=== PATIENT | male | born 1950 | race Caucasian/White ===

== ENCOUNTER 2017-01-24 22:14 | Observation (INO) | payer OTHER ==
--- NOTE | 2017-01-24 22:49 | ED PDOC ---
Arrival/HPI - General Chief Complaint: Chest Pain Time Seen by Provider: 01/24/17 22:37 Historian: Patient - History of Present Illness Narrative History of Present Illness (Text): 01/24/17 22:46 66 year old male whose past medical history includes hypertension (on norvasc) presents to the Emergency department complaining of intermittent chest pain that began early this morning. Tonight patient also had associated pain to left jaw which was transient. Patient's family decided to bring him into the Emergency department for further evaluation. Patient currently asymptomatic. He denies any history of shortness of breath, cough, fever, chills. Denies prior history of exertional chest pain or dyspnea on exertion. Symptom Onset: Gradual Symptom Course: Unchanged Activities at Onset: Rest Associated Symptoms (Text): 01/24/17 22:49 left jaw pain Past Medical History - Provider Review Nursing Documentation Reviewed: Yes - Cardiac Hx Hypertension: Yes - Psychiatric Hx Substance Use: No - Surgical History Hx Orthopedic Surgery: Yes Family/Social History - Physician Review Nursing Documentation Reviewed: Yes Family/Social History: Unknown Family HX Smoking Status: Never Smoked Hx Alcohol Use: No Hx Substance Use: No Allergies/Home Meds Allergies/Adverse Reactions: Allergies Penicillins Allergy (Verified 01/24/17 22:26) SWELLING Home Medications: Home Meds Medication Instructions Recorded Confirmed Atorvastatin [Lipitor] 01/24/17 01/24/17 amLODIPine [Norvasc] 01/24/17 Review of Systems - Physician Review All systems were reviewed & negative as marked: Yes - Review of Systems Constitutional: absent: Fevers, Other (no chills) Respiratory: absent: SOB, Cough Cardiovascular: Chest Pain (intermittent). absent: CARTWRIGHT, Other (no exertional chest pain) Musculoskeletal: Other (+transient left jaw pain) Physical Exam Vital Signs Reviewed: Yes Vital Signs Temp Pulse Resp BP Pulse Ox 01/25/17 00:05 99 H 18 167/80 H 97 01/24/17 22:28 97.9 F 92 H 16 170/85 H 98 Temperature: Afebrile Blood Pressure: Normal Pulse: Regular Respiratory Rate: Normal Appearance: Positive for: Well-Appearing, Non-Toxic, Comfortable Pain Distress: None Mental Status: Positive for: Alert and Oriented X 3 - Systems Exam Head: Present: Atraumatic, Normocephalic Pupils: Present: PERRL Extroacular Muscles: Present: EOMI Conjunctiva: Present: Normal Mouth: Present: Moist Mucous Membranes Neck: Present: Normal Range of Motion Respiratory/Chest: Present: Clear to Auscultation, Good Air Exchange. No: Respiratory Distress, Accessory Muscle Use, Wheezes, Rales, Rhonchi Cardiovascular: Present: Regular Rate and Rhythm, Normal S1, S2. No: Murmurs, Rub, Gallop Abdomen: Present: Normal Bowel Sounds. No: Tenderness, Distention, Peritoneal Signs, Rebound, Guarding Back: Present: Normal Inspection Upper Extremity: Present: Normal Inspection. No: Cyanosis, Edema Lower Extremity: Present: Normal Inspection. No: Edema Neurological: Present: GCS=15, CN II-XII Intact, Speech Normal Skin: Present: Warm, Dry, Normal Color. No: Rashes Psychiatric: Present: Alert, Oriented x 3, Normal Insight, Normal Concentration Medical Decision Making ED Course and Treatment: 01/24/17 22:53 Impression: 66 year old male complaining of intermittent chest pain. Physical exam unremarkable. Plan: --EKG --Chest X-ray --Labs --aspirin -- Reassess and disposition Prior Visits: Notes and results from previous visits were reviewed. Progress Notes: 01/24/17 23:01 EKG: Ordered, reviewed, and independently interpreted the EKG. Rate : 87 BPM Rhythm : NSR Interpretation : prolonged QT, nonspecific ST/T changes 01/25/17 01:45 Chest X-ray Impression: negative, read by me. 01/25/17 01:50 Case discussed with house resident Dr. Loja and Dr. Olvera who accepts patient to his service. - Lab Interpretations Lab Results: 01/24/17 22:50 01/24/17 22:50 Lab Results 01/24/17 22:50: WBC 7.5, RBC 4.78, Hgb 13.9 L, Hct 39.6 L, MCV 82.8, MCH 29.1, MCHC 35.1, RDW 12.8, Plt Count 254, MPV 8.2, PT 10.6, INR 0.98, APTT 26.8, Sodium 141, Potassium 3.2 L, Chloride 102, Carbon Dioxide 29, Anion Gap 13, BUN 18, Creatinine 0.9, Est GFR ( Amer) > 60, Est GFR (Non-Af Amer) > 60, Random Glucose 101, Calcium 9.2, Total Bilirubin 0.8, AST 43, ALT 32, Alkaline Phosphatase 92, Lactate Dehydrogenase 517, Total Creatine Kinase 385 H, CK-MB ( CK-2) 6.8 H, CK-MB (CK-2) % 1.8 L, Troponin I < 0.01, Total Protein 7.4, Albumin 4.2, Globulin 3.2, Albumin/Globulin Ratio 1.3 I have reviewed the lab results: Yes - RAD Interpretation Radiology Orders: 01/24/17 22:42 CHEST PORTABLE [RAD] Stat - Medication Orders Current Medication Orders: Amlodipine Besylate (Norvasc) 5 mg PO DAILY ERIC Aspirin (Ecotrin) 81 mg PO DAILY ERIC Atorvastatin Calcium (Lipitor) 10 mg PO DAILY ERIC Labetalol HCl (Trandate) 100 mg PO TID PRN PRN Reason: Systolic Blood Pressure Last Admin: 01/25/17 03:30 Dose: 100 MG TANISHA Pulse and Blood Pressure Document 01/25/17 03:30 PORTER (Rec: 01/25/17 03:31 PORTER [id number]) Pulse Pulse Rate (60-90) 82 Blood Pressure Blood Pressure (100/60-150/90) 166/89 Discontinued Medications Aspirin (Aspirin) 325 mg PO ONCE STA Stop: 01/24/17 22:43 Last Admin: 01/24/17 22:46 Dose: 325 MG Potassium Chloride (K-Dur 20 Meq Er Tab) 40 meq PO STAT STA Stop: 01/25/17 01:45 Last Admin: 01/25/17 01:59 Dose: 40 MEQ - Scribe Statement The provider has reviewed the documentation as recorded by the Pita Nichols Provider Scribe Attestation: All medical record entries made by the Scribyisel were at my direction and personally dictated by me. I have reviewed the chart and agree that the record accurately reflects my personal performance of the history, physical exam, medical decision making, and the department course for this patient. I have also personally directed, reviewed, and agree with the discharge instructions and disposition. Disposition/Present on Arrival - Present on Arrival Any Indicators Present on Arrival: No History of DVT/PE: No History of Uncontrolled Diabetes: No Urinary Catheter: No History of Decub. Ulcer: No History Surgical Site Infection Following: None - Disposition Have Diagnosis and Disposition been Completed?: Yes Diagnosis: Chest pain Disposition: HOSPITALIZED Disposition Time: 01:53 Patient Problems: Current Active Problems Problem Status Diagnosed Chest pain Acute Condition: STABLE
[2017-01-24 23:05] LABS: HEMATOCRIT 39.6 % (42.0-52.0); MEAN CELL VOLUME 82.8 fL (80.0-105.0); MEAN CORPUSCULAR HEMOGLOBIN 29.1 pg (25.0-35.0); MEAN CORPUSCULAR HGB CONC 35.1 g/dl (31.0-37.0); MEAN PLATELET VOLUME 8.2 fl (7.0-11.0); RED CELL DISTRIBUTION WIDTH 12.8 % (11.5-14.5); WHITE BLOOD COUNT 7.5 10^3/ul (4.5-11.0)
[2017-01-24 23:16] LABS: INR 0.98 (0.93-1.08); PARTIAL THROMBOPLASTIN TIME 26.8 Seconds (23.7-30.8)
[2017-01-24 23:17] LABS: ALB/GLOB RATIO 1.3 (1.1-1.8); ALKALINE PHOSPHATASE 92 U/L (38-133); ALT/SGPT 32 U/L (7-56); AST/SGOT 43 U/L (15-59); BILIRUBIN,TOTAL 0.8 mg/dL (0.2-1.3); BLOOD UREA NITROGEN 18 mg/dL (7-21); CALCIUM 9.2 mg/dL (8.4-10.5); CARBON DIOXIDE 29 mmol/L (21-33); CHLORIDE 102 mmol/L (98-107); GFR AFRICAN-AMERICAN > 60; GLUCOSE,RANDOM 101 mg/dL (70-110); POTASSIUM 3.2 mmol/L (3.6-5.0); SODIUM 141 mmol/L (132-148); TOTAL PROTEIN 7.4 g/dL (5.8-8.3)
[2017-01-24 23:27] LABS: TROPONIN I < 0.01 ng/mL
[2017-01-25 00:05] VITALS: O2SAT 97
[2017-01-25] MEDS ORDERED: Potassium Chloride 20 mEq ER Tab PO STA (01:44)
--- NOTE | 2017-01-25 02:53 | CP.PCM.HP ---
<Diogenes Castorena - Last Filed: 01/25/17 02:45> History of Present Illness - History of Present Illness History of Present Illness: cc: Chest pain HPI: Patient is a 66yo male with past medical history of hypertension and hyperlipidemia that presented to the ED c/o chest pain radiating to his jaw that started in the morning and had since subsided. Patient reported that in the morning he began experiencing intermittent sub-sternal chest pain, 4/10 in severity that radiated to the left side of his jaw. He stated that he had never experienced anything like this before in the past. He reported that although he did not have any pain while in the ED, he was urged by his family to come in for evaluation. In the ED, patient's vitals were as follows: temperature 97.9F , blood pressure 170/85, heart rate 92bpm, o2 saturation 98% on room air. His EKG revealed no acute ST-T wave changes and his first troponin was negative. Patient denied any chest pain, palpitations or SOB while in the ED. He also denied abdominal pain, nausea, vomiting, fever, chills, cough, focal weakness, numbness, tingling. 12 point ROS as per above, otherwise negative PMHx: Hypertension, Hyperlipidemia PSHx: Left knee surgery (~2yrs ago), Right knee surgery (>10yrs ago) Allergies: Penicillin Medications: Norvasc 5mg PO qD, Lipitor 10mg PO qD Social Hx: Former smoker, quit over 20 yrs ago; Social alcohol use; Denies illicit drugs Present on Admission - Present on Admission Any Indicators Present on Admission: No Review of Systems - Review of Systems Review of Systems: 12 point ROS as per HPI otherwise negative Past Patient History - Past Social History Smoking Status: Never Smoked - CARDIAC Hx Hypertension: Yes - PSYCHIATRIC Hx Substance Use: No - SURGICAL HISTORY Hx Orthopedic Surgery: Yes Meds Allergies/Adverse Reactions: Allergies Allergy/AdvReac Type Severity Reaction Status Date / Time Penicillins Allergy SWELLING Verified 01/24/17 22:26 Physical Exam - Constitutional Appears: Non-toxic, No Acute Distress - Head Exam Head Exam: ATRAUMATIC, NORMAL INSPECTION, NORMOCEPHALIC - Eye Exam Eye Exam: EOMI, PERRL - ENT Exam ENT Exam: Mucous Membranes Moist - Neck Exam Neck exam: Positive for: Normal Inspection. Negative for: Lymphadenopathy, Tenderness, Thyromegaly - Respiratory Exam Respiratory Exam: Clear to Auscultation Bilateral. absent: Rales, Rhonchi, Wheezes - Cardiovascular Exam Cardiovascular Exam: RRR, +S1, +S2. absent: Tachycardia, Diastolic murmur, Gallop, JVD, Rubs, Systolic Murmur - GI/Abdominal Exam GI & Abdominal Exam: Normal Bowel Sounds, Soft. absent: Distended, Firm, Guarding, Rebound, Rigid, Tenderness - Neurological Exam Neurological exam: Alert, CN II-XII Intact, Oriented x3 - Psychiatric Exam Psychiatric exam: Normal Affect, Normal Mood - Skin Skin Exam: Dry, Intact, Normal Color, Warm Results - Vital Signs Recent Vital Signs: Last Vital Signs Temp 97.9 F 01/24/17 22:28 Pulse 99 H 01/25/17 00:05 Resp 18 01/25/17 00:05 BP 167/80 H 01/25/17 00:05 Pulse Ox 97 01/25/17 00:05 - Labs Result Diagrams: 01/24/17 22:50 01/24/17 22:50 Assessment & Plan - Assessment and Plan (Free Text) Assessment: 66yo male with history of HTN and HLD presents c/o intermittent chest pain radiating to the left side of his jaw Plan: 1. Chest pain r/o ACS -EKG reviewed; No acute ST-T wave changes -Chest Xray reviewed -Troponin negative x1, will continue to trend -TSH, Lipid panel, HgbA1c pending -Continue ASA 81mg qD -Cardiology consulted - Dr. Sanchez 2. Hypertension -Continue with labetalol 100mg PO TID PRN for SBP > 160 -Resumed home medication norvasc 5mg PO qD 3. Hyperlipidemia -Resumed home medication lipitor 10mg PO qD Patient seen and case discussed with attending, Dr. Olvera - Date & Time Date: 01/25/17 Time: 02:56 <May VAUGHN,Buck - Last Filed: 01/25/17 07:04> Results - Vital Signs Recent Vital Signs: Last Vital Signs Temp 97.9 F 01/25/17 06:00 Pulse 76 01/25/17 06:00 Resp 22 01/25/17 06:00 BP 148/82 01/25/17 06:00 Pulse Ox 97 01/25/17 06:00 - Labs Result Diagrams: 01/24/17 22:50 01/24/17 22:50 Attending/Attestation - Attestation I have personally seen and examined this patient.: Yes I have fully participated in the care of the patient.: Yes I have reviewed all pertinent clinical information: Yes Notes (Text): 01/25/17 07:03 -I agree with the above H&P completed by the resident physician. -Briefly, the patient is a 66 year old man with a history of HTN and HLD, admitted for chest pain (r/o ACS). Cards consuls, serial trop's EKG's, ASA have all been ordered.
[2017-01-25 08:29] LABS: ADD MANUAL DIFF? NO
[2017-01-25 08:46] LABS: ALB/GLOB RATIO 1.3 (1.1-1.8); ALKALINE PHOSPHATASE 95 U/L (38-133); ALT/SGPT 31 U/L (7-56); AST/SGOT 32 U/L (15-59); BILIRUBIN,TOTAL 0.5 mg/dL (0.2-1.3); BLOOD UREA NITROGEN 17 mg/dL (7-21); CALCIUM 8.7 mg/dL (8.4-10.5); CARBON DIOXIDE 28 mmol/L (21-33); CHLORIDE 103 mmol/L (98-107); CHOLESTEROL 132 mg/dL (130-200); GFR AFRICAN-AMERICAN > 60; GLUCOSE,RANDOM 107 mg/dL (70-110); MAGNESIUM 1.7 mg/dL (1.7-2.2); POTASSIUM 3.6 mmol/L (3.6-5.0); SODIUM 139 mmol/L (132-148); TOTAL PROTEIN 6.8 g/dL (5.8-8.3)
[2017-01-25 08:47] LABS: BASO # 0.02 K/mm3 (0.0-2.0); BASO % 0.3 % (0.0-3.0); EOS # 0.1 (0.0-0.7); EOS % 1.2 % (1.5-5.0); GRAN # 3.52 (1.4-6.5); HEMATOCRIT 39.5 % (42.0-52.0); LYMPH # 2.4 (1.2-3.4); LYMPH % 36.1 % (22.0-35.0); MEAN CELL VOLUME 83.3 fL (80.0-105.0); MEAN CORPUSCULAR HEMOGLOBIN 28.7 pg (25.0-35.0); MEAN CORPUSCULAR HGB CONC 34.4 g/dl (31.0-37.0); MEAN PLATELET VOLUME 8.3 fl (7.0-11.0); MONO # 0.6 (0.1-0.6); MONO % 8.4 % (1.0-6.0); PLATELET COUNT 244 10^3/uL (120.0-450.0); RED CELL DISTRIBUTION WIDTH 12.8 % (11.5-14.5); WHITE BLOOD COUNT 6.5 10^3/ul (4.5-11.0)
[2017-01-25 08:57] LABS: TROPONIN I < 0.01 ng/mL
[2017-01-25 12:26] VITALS: RESP 18
--- NOTE | 2017-01-25 12:50 | CARD ---
APPROVED REPORT EKG Measurement Heart [id number] <Conclusion> Normal sinus rhythm
--- NOTE | 2017-01-25 13:16 | RAD ---
HISTORY: chest pain COMPARISON: No prior. FINDINGS: LUNGS: No active pulmonary disease. PLEURA: No significant pleural effusion identified, no pneumothorax apparent. CARDIOVASCULAR: Normal. OSSEOUS STRUCTURES: No significant abnormalities. VISUALIZED UPPER ABDOMEN: Normal. OTHER FINDINGS: None. IMPRESSION: No active disease.
--- NOTE | 2017-01-25 13:21 | CARD ---
APPROVED REPORT EXAM: Two-dimensional and M-mode echocardiogram with Doppler and color Doppler. INDICATION Chest Pain 2D DIMENSIONS Left Atrium (2D)3.9 (1.6-4.0cm)IVSd1.4 (0.7-1.1cm) LVDd4.9 (3.9-5.9cm)PWd1.1 (0.7-1.1cm) LVDs3.3 (2.5-4.0cm)FS (%) 32.7 % LVEF (%)60.9 (>50%) M-Mode DIMENSIONS Aortic Root3.60 (2.2-3.7cm)Aortic Cusp Exc.1.90 (1.5-2.0cm) Aortic Valve AoV Peak Bxmyuypf457.0cm/Consuelo Peak GR.5mmHg Mitral Valve MV E Fnqtsimd02.9cm/sMV A Scductow83.8cm/sE/A ratio0.8 TDI E/Lateral E'0.0E/Medial E'0.0 Tricuspid Valve TR Peak Velnornx902up/sRAP [id number] Peak Gr.32mmHg [id number] LEFT VENTRICLE The left ventricle is normal size. There is borderline to mild concentric left ventricular hypertrophy. The left ventricular function is normal.EF-55-60% There is normal LV segmental wall motion. Transmitral Doppler flow pattern is Grade III-reversible restrictive diastolic dysfunction. No left ventricle thrombus noted on this study. There is no ventricular septal defect visualized. There is no left ventricular aneurysm. There is no mass noted in the left ventricle. RIGHT VENTRICLE The right ventricle is normal size. There is normal right ventricular wall thickness. The right ventricular systolic function is normal. ATRIA The left atrium size is normal. The right atrium size is normal. The interatrial septum is intact with no evidence for an atrial septal defect. AORTIC VALVE The aortic valve is normal in structure. No aortic regurgitation is present. There is no aortic valvular stenosis. There is no aortic valvular vegetation. MITRAL VALVE The mitral valve is thickened but opens well. Mitral regurgitation is trace. There is no mitral valve stenosis. There is no evidence of mitral valve prolapse. TRICUSPID VALVE The tricuspid valve leaflets are thickened , but open well. There is mild tricuspid regurgitation.RVSP-42 mmof Hg There is no tricuspid valve stenosis. There is no tricuspid valve prolapse or vegetation. PULMONIC VALVE The pulmonary valve is normal in structure. There is no pulmonic valvular regurgitation. There is no pulmonic valvular stenosis. GREAT VESSELS The aortic root is normal in size. The ascending aorta is normal in size. The pulmonary artery is normal. The IVC was not visualized. PERICARDIAL EFFUSION There is no pleural effusion. There is no pericardial effusion. <Conclusion> Normal Chamber Size. EF-55-60% Trace MR Mild Tr. RVSP-42 mmof Hg. No Vegetation or thrombus.
--- NOTE | 2017-01-25 14:01 | CON ---
DATE: 01/25/2017 REASON FOR CONSULTATION: Chest pain. HISTORY OF PRESENT ILLNESS: The patient is a 66-year-old male originally from [place] who has history o f hypertension for the past few years, presented because of chest discomfort. 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 The patient denies any associated diaphoresis, dizziness or syncope. The patient underwent stress test done 5 ye ars ago that was unremarkable. The patient does run 2 miles a day according to him and has no proble m with chest pain. SOCIAL HISTORY: The patient is a nonsmoker, nondrinker. He is . He works as a special education teachers. MEDICATIONS: Aspirin 81 mg once a day, Lipitor 10 mg once a day, Norvasc 10 mg once a day. REVIEW OF SYSTEMS: No fever or chills. No dizziness or syncope. No vomiting or diarrhea. PHYSICAL EXAMINATION: GENERAL: The patient is a middle-aged male who does not appear to be in any distress. VITAL SIGNS: Blood pressure 159/78, heart rate 74, temperature 98, respiration 18. HEENT: Normocephalic. NECK: No JVD. CHEST: Clear. HEART: S1, S2 regular. ABDOMEN: Soft. EXTREMITIES: No edema. LABORATORIES: PT, PTT and INR are within normal limits. Today's SMA-7 is entirely within normal cedeno its. Total CPK slightly elevated at 287. Two sets of troponins are negative. Lipid profile is with in normal limits. TSH level is within normal limits. Hemoglobin and hematocrit 13.6 and 39.5, white count and platelet count are within normal limits. Chest x-ray revealed borderline cardiomegaly, no infiltrate or effusion. EKG revealed normal sinus rhythm. ASSESSMENT: 1. Chest pain, myocardial infarction is ruled out. 2. Hypertension. 3. Improved hypokalemia. The patient's potassium level was 3.4 on admission and he did receive K-Du r 20 mEq yesterday. RECOMMENDATIONS: Continue aspirin 81 mg once daily, Lipitor at 10 mg once a day, Norvasc at 10 mg on ce a day. I will review the echocardiographic study that was just completed today. Luis Felipe Sanchez MD cc: [id number] TT: 01/25/2017 14:00:40 Confirmation # [id number] Dictation # [id number] tn
--- NOTE | 2017-01-25 14:24 | CP.PCM.DIS ---
Provider - Provider Date of Admission: 01/25/17 01:48 Attending physician: Destin [place] MD Primary care physician: Kyle Pfeiffer MD Consults: Cardiology: Dr Taylor Time Spent in preparation of Discharge (in minutes): 35 Hospital Course - Lab Results Lab Results: Most Recent Lab Values WBC 6.5 10^3/ul (4.5-11.0) 01/25/17 08:15 RBC 4.74 10^6/uL (3.5-6.1) 01/25/17 08:15 Hgb 13.6 gm/dL (14.0-18.0) L 01/25/17 08:15 Hct 39.5 % (42.0-52.0) L 01/25/17 08:15 MCV 83.3 fL (80.0-105.0) 01/25/17 08:15 MCH 28.7 pg (25.0-35.0) 01/25/17 08:15 MCHC 34.4 g/dl (31.0-37.0) 01/25/17 08:15 RDW 12.8 % (11.5-14.5) 01/25/17 08:15 Plt Count 244 10^3/uL (120.0-450.0) 01/25/17 08:15 MPV 8.3 fl (7.0-11.0) 01/25/17 08:15 Gran % 54.0 % (50.0-68.0) 01/25/17 08:15 Lymph % (Auto) 36.1 % (22.0-35.0) H 01/25/17 08:15 Ramsey % (Auto) 8.4 % (1.0-6.0) H 01/25/17 08:15 Eos % (Auto) 1.2 % (1.5-5.0) L 01/25/17 08:15 Baso % (Auto) 0.3 % (0.0-3.0) 01/25/17 08:15 Gran # 3.52 (1.4-6.5) 01/25/17 08:15 Lymph # 2.4 (1.2-3.4) 01/25/17 08:15 Ramsey # 0.6 (0.1-0.6) 01/25/17 08:15 Eos # 0.1 (0.0-0.7) 01/25/17 08:15 Baso # 0.02 K/mm3 (0.0-2.0) 01/25/17 08:15 PT 10.6 Seconds (9.9-11.8) 01/24/17 22:50 INR 0.98 (0.93-1.08) 01/24/17 22:50 APTT 26.8 Seconds (23.7-30.8) 01/24/17 22:50 D-Dimer, Quantitative 0.34 mg/L FEU (0-0.50) 01/25/17 08:15 Sodium 139 mmol/L (132-148) 01/25/17 08:15 Potassium 3.6 mmol/L (3.6-5.0) 01/25/17 08:15 Chloride 103 mmol/L (98-107) 01/25/17 08:15 Carbon Dioxide 28 mmol/L (21-33) 01/25/17 08:15 Anion Gap 12 (10-20) 01/25/17 08:15 BUN 17 mg/dL (7-21) 01/25/17 08:15 Creatinine 0.9 mg/dL (0.5-1.4) 01/25/17 08:15 Est GFR ( Amer) > 60 01/25/17 08:15 Est GFR (Non-Af Amer) > 60 01/25/17 08:15 Random Glucose 107 mg/dL (70-110) 01/25/17 08:15 Calcium 8.7 mg/dL (8.4-10.5) 01/25/17 08:15 Phosphorus 3.0 mg/dL (2.5-4.5) 01/25/17 08:15 Magnesium 1.7 mg/dL (1.7-2.2) 01/25/17 08:15 Total Bilirubin 0.5 mg/dL (0.2-1.3) 01/25/17 08:15 AST 32 U/L (15-59) 01/25/17 08:15 ALT 31 U/L (7-56) 01/25/17 08:15 Alkaline Phosphatase 95 U/L (38-133) 01/25/17 08:15 Lactate Dehydrogenase 417 U/L (333-699) 01/25/17 08:15 Total Creatine Kinase 287 U/L (35-230) H 01/25/17 08:15 CK-MB (CK-2) 4.6 ng/mL (0.0-3.6) H 01/25/17 08:15 CK-MB (CK-2) % 1.8 % (2.5-3.0) L 01/24/17 22:50 Troponin I < 0.01 ng/mL 01/25/17 08:15 Total Protein 6.8 g/dL (5.8-8.3) 01/25/17 08:15 Albumin 3.8 g/dL (3.0-4.8) 01/25/17 08:15 Globulin 3.0 gm/dL 01/25/17 08:15 Albumin/Globulin Ratio 1.3 (1.1-1.8) 01/25/17 08:15 Triglycerides 66 mg/dL (35-160) 01/25/17 08:15 Cholesterol 132 mg/dL (130-200) 01/25/17 08:15 LDL Cholesterol Direct 70 mg/dL (0-129) 01/25/17 08:15 HDL Cholesterol 48 mg/dL (29-60) 01/25/17 08:15 TSH 3rd Generation 2.45 mIU/mL (0.46-4.68) 01/25/17 08:15 - Hospital Course Hospital Course: This is 66 year old male with history of HTN, hyperlipidemia who got admitted for evaluation of chest pain. Serial EKG and troponins normal. Stress test 5 years ago was normal. As per patient his chest pain lasted for about 2 hours and has resolved now. He runs on treadmill for 2 hours every day. He thinks that his chest pain is related to exercise he did in the gym few days ago. He feels fine and wants to go home. His BP was noticed to be high. Will increase norvasc to 10 mg. 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 Advised to follow up with PMD Dr Sena within 3-[address] Destin [place] Discharge Exam - Head Exam Head Exam: ATRAUMATIC, NORMAL INSPECTION, NORMOCEPHALIC - Eye Exam Eye Exam: EOMI, Normal appearance Pupil Exam: PERRL - ENT Exam ENT Exam: Mucous Membranes Moist - Neck Exam Neck exam: Full Rom, Normal Inspection - Respiratory Exam Respiratory Exam: Clear to PA & Lateral, NORMAL BREATHING PATTERN. absent: Accessory Muscle Use, Chest Wall Tenderness, Prolonged Expiratory Phase, Rhonchi - Cardiovascular Exam Cardiovascular Exam: REGULAR RHYTHM, +S1, +S2 - GI/Abdominal Exam GI & Abdominal Exam: Normal Bowel Sounds, Soft. absent: Distended, Tenderness - Rectal Exam Rectal Exam: Deferred - Extremities Exam Extremities exam: full ROM, normal capillary refill, normal inspection, pedal pulses present - Back Exam Back exam: FULL ROM, NORMAL INSPECTION. absent: CVA tenderness (L), CVA tenderness (R), paraspinal tenderness, rash noted, tenderness, vertebral tenderness - Neurological Exam Neurological exam: Alert, CN II-XII Intact, Normal Gait, Oriented x3, Reflexes Normal - Psychiatric Exam Psychiatric exam: Normal Affect, Normal Mood - Skin Skin Exam: Dry, Intact, Normal Color, Warm Discharge Plan - Discharge Medications Prescriptions: Aspirin [Ecotrin] 81 mg PO DAILY #30 tabec - Follow Up Plan Condition: STABLE Disposition: HOME/ ROUTINE Patient education suggested?: Yes Additional Instructions: Follow up with Dr Sena within 3-5 days DISCHARGE DIAGNOSIS: 1-Atypical chest pain-most likely musculoskeletal etiology 2-Uncontrolled Hypertension 3-Dyslipidemia Referrals: Kyle Pfeiffer MD [Primary Care Provider] -
[2017-01-25 16:24] VITALS: BP 141/91; PULSE 78; TEMP 98.8
== END 2017-01-25 16:30 | disposition home or self-care (01) ==
LOC: ED 22:14 → ERH 01-25 01:48 → 2RSO 01-25 02:48
PROVIDERS: ADMIT Hospitalist; ATTEND Hospitalist
DX: R07.2 Precordial pain (principal); E78.5 Hyperlipidemia, unspecified; I10 Essential (primary) hypertension; E87.6 Hypokalemia; Z87.891 Personal history of nicotine dependence; Z88.0 Allergy status to penicillin
CPT/HCPCS: 36415; 71010; 80053; 80061; 82550; 82553; 83036; 83615; 83735; 84100; 84443; 84484; 85025; 85027; 85378; 85610; 85730; 93005; 93306; 99285; G0378